=== PATIENT | female | born 1950 | race Caucasian/White ===

== ENCOUNTER 2019-06-24 08:22 | Emergency (ER) | payer MEDICARE, SELFPAY ==
[2019-06-24 08:33] VITALS: BP 148/92; PULSE 75; RESP 16; TEMP 36.4; O2SAT 96
--- NOTE | 2019-06-24 08:48 | ED.WOUNDLAC ---
HPI - Wound/Laceration General Chief Complaint: Wound/Laceration Stated Complaint: puncture wound from fork Time Seen by Provider: 06/24/19 08:41 Source: patient and RN notes reviewed Mode of arrival: ambulatory Limitations: no limitations History of Present Illness HPI narrative: A 68 y/o female present to the ED with a painful puncture laceration to her lt 3rd finger beginning this morning. She states that she was closing her utensil drawer when she slammed her finger in the drawer, causing a laceration to her lt 3rd finger. She notes that she is on Xarelto and that she couldn't get the bleeding to stop right away, so she decided to come to the ED. She also notes that she doesn't think that her tetanus shot is up to date. She denies any fevers, chills, CP, SOB, N/V/D, ABD pain, or dizziness. Onset (ago): hour(s) (this morning) Extremity Location: Left: hand (3rd finger) Place: home Patient tetanus UTD: No Context: accidental Associated symptoms: pain Related Data Home Medications Medication Instructions Recorded Confirmed rivaroxaban [Xarelto] mg 06/24/19 Allergies Allergy/AdvReac Type Severity Reaction Status Date / Time No Known Allergies Allergy Unverified 06/24/19 08:43 Review of Systems Review of Systems: All systems reviewed & are unremarkable except as noted in HPI and below Constitutional: Constitutional: Denies chills and Denies fever(s) Cardiovascular: Cardiovascular: Denies chest pain Respiratory: Respiratory: Denies dyspnea Gastrointestinal: Gastrointestinal: Denies abdominal pain, Denies diarrhea, Denies nausea and Denies vomiting Integumentary/Breasts: Skin/Breast: Reports wounds (painful puncture laceration to her lt 3rd finger) Neurologic: Denies dizziness PMFSH Past Medical History Medical History Adult hypothyroidism Anxiety Arthritis Depression DVT (deep venous thrombosis) GERD (gastroesophageal reflux disease) H/O: HTN (hypertension) Hypercholesteremia Hypothyroid Macular degeneration ERICK (obstructive sleep apnea) Other and unspecified hyperlipidemia PE (pulmonary thromboembolism) Prediabetes Shingles Sleep apnea Vitamin D deficiency Surgical History Surgical History H/O section History of colonoscopy x2. Family History Family History Mother Diabetes mellitus Family history of diabetes mellitus in first degree relative Father Acute myocardial infarction Other Cerebrovascular accident Family history of cardiovascular disease Hypertension Social History Social History Smoking status: Former smoker Second hand tobacco smoke exposure: Yes Alcohol intake: current Gender identity (if verbalized by the patient): Male Exam Narrative: Exam Narrative: GENERAL: Well-appearing, well-nourished, and in no acute distress. HEAD: Normocephalic, atraumatic. EYES: PERRLA and EOMI. ENT: Nares clear, no rhinorrhea or epistaxis. Mucous membranes moist. NECK: Supple. CHEST: Clear to auscultation. No respiratory distress. HEART: Regular rate and rhythm. No murmur heard. Normal peripheral pulses. EXTREMITIES: Normal range of motion. No edema. Has 2 small puncture wounds on the left middle finger with no active bleeding SKIN: Warm, dry, no rash. NEURO: No focal deficits. Alert and oriented x3. PSYCH: Normal mood and affect. Course Course Emergency Course: Advised her to keep the wound clean and with the pressure dressing for 48 hours. Vital Signs Vital signs: Vital Signs Temperature 36.4 C 06/24/19 08:33 Pulse Rate 75 06/24/19 08:33 Respiratory Rate 16 06/24/19 08:33 Blood Pressure 148/92 H 06/24/19 08:33 Pulse Oximetry 96 06/24/19 08:33 Temperature 36.4 C 06/24/19 08:33 Pulse Rate 75 06/24/19 08:33 Respiratory Rate 16 06/24/19 08:33 Blood
[2019-06-24] MEDS: TETANUS,DIPHTHERIA,AC PERTUSSIS ADULT (0.5 ML) BOOSTRIX IM (09:32)
== END 2019-06-24 09:35 | disposition home or self-care (01) ==
PROVIDERS: Emergency Provider Family Medicine; PCP Internal Medicine
DX: S61.233A Puncture wound without foreign body of left middle finger without damage to nail, initial encounter (principal); Z23 Encounter for immunization; E03.9 Hypothyroidism, unspecified; F41.9 Anxiety disorder, unspecified; Z86.718 Personal history of other venous thrombosis and embolism; K21.9 Gastro-esophageal reflux disease without esophagitis; I10 Essential (primary) hypertension; E78.00 Pure hypercholesterolemia, unspecified; H35.30 Unspecified macular degeneration; G47.33 Obstructive sleep apnea (adult) (pediatric); Z86.711 Personal history of pulmonary embolism; R73.03 Prediabetes; G47.30 Sleep apnea, unspecified; E55.9 Vitamin D deficiency, unspecified; Z87.891 Personal history of nicotine dependence; W23.0XXA Caught, crushed, jammed, or pinched between moving objects, initial encounter
CPT/HCPCS: 90471; 90715; 99283

== ENCOUNTER 2019-09-24 08:45 | Outpatient (CLI) | payer MEDICARE, SELFPAY ==
--- NOTE | ~2019-09-24 | US_ITS ---
US right upper quadrant DATE: 09/24/2019 09:25 INDICATION: Gallbladder calculus TECHNIQUE: Real-time imaging of liver, pancreas, gallbladder areas COMPARISON: 01/28/2017 CT abdomen pelvis FINDINGS: The pancreatic tail is obscured by bowel gas. The pancreas is otherwise unremarkable. Hepatic steatosis. No apparent hepatic space-occupying mass lesion. Normal hepatic portal venous flow direction. There is an approximately 8 mm stone at the neck of the gallbladder. No gallbladder wall thickening i s evident. No pericholecystic abnormal fluid collection. Negative sonographic Beckett's sign. The common bile duct measures 4 mm, within normal range. IMPRESSION: Cholelithiasis Hepatic steatosis Reviewed, dictated and finalized at [facility]. Reviewed, dictated and finalized at [facility].
== END 2019-09-24 08:46 | disposition home or self-care (01) ==
PROVIDERS: PCP Internal Medicine; Visit Provider Nurse Practitioner
DX: K80.20 Calculus of gallbladder without cholecystitis without obstruction (principal); K76.0 Fatty (change of) liver, not elsewhere classified
CPT/HCPCS: 76705

== ENCOUNTER 2019-10-14 07:48 | Outpatient (CLI) | payer MEDICARE, SELFPAY ==
--- NOTE | ~2019-10-14 | NM_ITS ---
HEPATOBILIARY SCAN Procedure: Hepatobiliary scan performed following IV administration 4.9 mCi Tc 99m Choletec. At 60 m inutes 2 mcg CCK administered IV for evaluation of gallbladder ejection fraction. Indication:Diarrhea. Gallstones. Comparison: Ultrasound dated 09/24/2019 Findings: There is normal radiotracer uptake in the liver parenchyma with prompt excretion into the b iliary tract. Gallbladder visualized at 20 minutes. Small bowel visualized at 25 minutes. Normal g allbladder ejection fraction measures 61% (normal 10-90%, but most patients with gallbladder dysfunct ion have GBEF of less than 35%) Impression: 1: Normal hepatobiliary scan. Reviewed, dictated and finalized at [facility]. Impression: 1: Normal hepatobiliary scan.
== END 2019-10-14 07:49 | disposition home or self-care (01) ==
PROVIDERS: PCP Internal Medicine; Visit Provider Surgery
DX: R19.7 Diarrhea, unspecified (principal)
CPT/HCPCS: 78227; A9537; J2805

== ENCOUNTER 2019-10-28 06:55 | Outpatient (CLI) | payer MEDICARE, SELFPAY ==
--- NOTE | ~2019-10-28 | CT_ITS ---
EXAMINATION: CT abdomen pelvis w con INDICATION: Left-sided abdominal pain TECHNIQUE: Computed tomographic images of the abdomen and pelvis were obtained after the administrati on of 100 cc of Omnipaque 350 intravenous contrast. The dose-length product (DLP) was 1120.57 mGy-cm. Automated exposure control and iterative reconstruction technique were employed. COMPARISON: 01/28/2017 FINDINGS: Minimal dependent atelectasis is present in the lung bases. The heart size is normal. The l iver is diffusely low in attenuation when compared with the spleen, consistent with hepatic steatosis . The spleen, pancreas, and adrenal glands are normal. A stone is present in the nondistended gallbla dder. The left kidney is unremarkable. There is a 2 mm nonobstructing stone of the right kidney lower pole. No stones are present in the ureters or bladder. There is calcified atherosclerosis of the aor ta and many of the other arteries. No pathologically enlarged abdominal or pelvic lymph nodes are ivory ntified. The appendix is normal. There is a left inguinal hernia containing fat. There is a questiona ble circumscribed fat attenuation mass contiguous with the left inguinal hernia. There is mild lumbar spondylosis. IMPRESSION: 1. Fat-containing left inguinal hernia contiguous with a possible fat attenuation retroperitoneal mas s. Surgical consultation is recommended. 2. Diffuse hepatic steatosis. Reviewed, dictated and finalized at [facility]. IMPRESSION: 1. Fat-containing left inguinal hernia contiguous with a possible fat attenuati on retroperitoneal mass. Surgical consultation is recommended. 2. Diffuse hepatic steatosis.
[2019-10-28 07:34] LABS: Estimated Glomerular Filt Rate > 60
== END 2019-10-28 06:56 | disposition home or self-care (01) ==
PROVIDERS: PCP Internal Medicine
DX: R14.0 Abdominal distension (gaseous) (principal); K76.0 Fatty (change of) liver, not elsewhere classified; K40.90 Unilateral inguinal hernia, without obstruction or gangrene, not specified as recurrent
CPT/HCPCS: 36415; 74177; Q9967

== ENCOUNTER 2019-11-17 01:37 | Outpatient (CLI) | payer MEDICARE, SELFPAY ==
[2019-11-17 19:09] LABS: SARS-CoV-2 RNA PCR Negative
== END 2019-11-17 01:38 | disposition home or self-care (01) ==
LOC: ANHCOVIDDT 01:37
PROVIDERS: PCP Internal Medicine; Visit Provider Internal Medicine Gastroenterology
DX: Z01.818 Encounter for other preprocedural examination (principal); Z11.59 Encounter for screening for other viral diseases
CPT/HCPCS: 87635; C9803; U0003

== ENCOUNTER 2019-11-19 01:22 | Day surgery (SDC) | payer MEDICARE, SELFPAY ==
[2019-11-12 15:19] VITALS: BMI 36.6
--- NOTE | 2019-11-19 08:15 | WPDANESEPPF ---
Anes - Initial Pre Proc Eval Procedure: Operation Date: 11/19/19 09:00 Proposed Procedures p Colonoscopy - Hermes Deluna DO Date/Time: 11/19/19 08:15 Surgeon: Hermes Deluna DO Pre Op Diagnosis: Diarrhea/ LLQ Pain Patient Data Age: 69 Gender: F Height: 5 ft 2 in Weight: 91 kg Allergies Allergy/AdvReac Type Severity Reaction Status Date / Time No Known Allergies Allergy Verified 11/19/19 08:20 Home Medications Medication Instructions Recorded Confirmed Type zolpidem 10 mg tablet 10 mg PO .QHS PRN #30 tablet 07/08/19 11/12/19 Rx famotidine 40 mg tablet 40 mg PO DAILY #90 tablet 09/15/19 11/12/19 Rx levothyroxine 125 mcg tablet 125 mcg PO DAILY #90 tablet 09/15/19 11/12/19 Rx metformin 500 mg tablet 500 mg PO BID #180 tablet 09/15/19 11/12/19 Rx metoprolol succinate 25 mg 25 mg PO DAILY #90 tablet 09/15/19 11/12/19 Rx tablet,extended release 24 hr rivaroxaban 20 mg tablet 20 mg PO DAILY #90 tablet 09/15/19 11/12/19 Rx sertraline 50 mg tablet 50 mg PO DAILY #90 tablet 09/15/19 11/12/19 Rx simvastatin 20 mg tablet 20 mg PO DAILY #90 tablet 09/15/19 11/12/19 Rx Patient hx anesthesia problems: none Family hx anesthesia problems: none PMFSH Past Medical History Medical History Adult hypothyroidism Anxiety Arthritis Depression DVT (deep venous thrombosis) GERD (gastroesophageal reflux disease) H/O: HTN (hypertension) High cholesterol Hypercholesteremia Hypothyroid Macular degeneration Mitral valve prolapse ERICK (obstructive sleep apnea) Other and unspecified hyperlipidemia PE (pulmonary thromboembolism) Prediabetes Shingles Sleep apnea Vitamin D deficiency Surgical History Surgical History H/O section H/O knee surgery History of colonoscopy x2. Family History Family History Mother Diabetes mellitus Family history of diabetes mellitus in first degree relative Father Acute myocardial infarction Heart attack Sibling Heart attack Other Cerebrovascular accident Family history of cardiovascular disease Hypertension Social History Social History Smoking status: Former smoker Second hand tobacco smoke exposure: Yes Alcohol intake: current Substance use: never Gender identity (if verbalized by the patient): Male Anes - Eval Final PreProcedure Day of Procedure 11/19/19 08:15 Patient weight: obese Heart: regular rate and rhythm Lungs: decreased breath sounds Airway: Mallampati scale class II Neurological: alert and oriented Last oral intake: >/= 8 hours ASA classification: III Emergent: no Anesthetic plan: proceed Anesthesia type and monitoring: general GIVS and standard monitoring Informed Consent: The patient's anesthetic plan and its attendant risks and benefits were discussed with the patient/family/POA. Questions were solicited and answers provided to the satisfaction of the patient/family/POA.
[2019-11-19 08:21] VITALS: BP 130/101; PULSE 78; RESP 18; TEMP 36.3; O2SAT 94
[2019-11-19] MEDS: LACTATED RINGERS 1,000 ML 150 ML IV CONT (08:37)
[2019-11-19 08:42] LABS: Glucose Point of Care 112 (65-105)
--- NOTE | 2019-11-19 09:11 | PM.IMHP ---
H&P: HPI History of Present Illness Chief complaint: Diarrhea/ LLQ Pain Narrative: Reason for visit colonoscopy. This very pleasant lady's being evaluated at the request of the primary physician. Impression: Your very pleasant lady with chronic diarrhea. This may be compatible to IBS. Underlying inflammatory neoplastic disease should be excluded. Globus reaction responded to H2 kirti. Diabetes mellitus. Hypertension. Hyperlipidemia. Obstructive sleep apnea. Hypothyroidism. Migraine cephalgia. Factor 5 laden deficiency. DVT/PE. Obesity. Recommendation: Colonoscopy. History: This very pleasant lady's being readied for chronic diarrhea. She reports urgency and diarrhea usually after breakfast. She will have a normal bowel movement followed by 1 or 2 diarrheal stools. She has significant left upper and left lower quadrant abdominal discomfort and cramping. Defecation usually alleviates her symptoms. She does have a history of a globus type reaction. This has responded nicely to H2 blockers. Vomiting, hematemesis, dysphagia, odynophagia, hematochezia, melena and acholic stools or tonight. Patient previously has had a colonoscopy which was unremarkable according to her. Physical examination: General: very pleasant patient in no acute distress. HEENT: Head was normocephalic sclerae is clear mouth without masses neck was supple. Heart: Rate rhythm regular without S3 or S4. Lungs: CTA. Abdomen: Soft with no guarding or rigidity. Bowel sounds were active. Neurologic: Cranial nerves 2 through 12 intact. No focal defects. No clonus. Musculoskeletal system: Revealed no joint tenderness or swelling no muscle atrophy. Extremities: Reveal no significant edema. Skin: Warm and dry with normal turgor. Mental status: intact. Patient is alert and oriented. Review of Systems Review of Systems: All systems reviewed & are unremarkable except as noted in HPI and below COUNTS INCLUDE 234 BEDS AT THE [facility] Past Medical History Medical History Adult hypothyroidism Anxiety Arthritis Depression DVT (deep venous thrombosis) GERD (gastroesophageal reflux disease) H/O: HTN (hypertension) High cholesterol Hypercholesteremia Hypothyroid Macular degeneration Mitral valve prolapse ERICK (obstructive sleep apnea) Other and unspecified hyperlipidemia PE (pulmonary thromboembolism) Prediabetes Shingles Sleep apnea Vitamin D deficiency Surgical History Surgical History H/O section H/O knee surgery History of colonoscopy x2. Family History Family History Mother Diabetes mellitus Family history of diabetes mellitus in first degree relative Father Acute myocardial infarction Heart attack Sibling Heart attack Other Cerebrovascular accident Family history of cardiovascular disease Hypertension Social History Social History Smoking status: Former smoker Second hand tobacco smoke exposure: Yes Alcohol intake: current Substance use: never Gender identity (if verbalized by the patient): Male Meds Home Medications and Allergies Home Medications Medication Instructions Recorded Confirmed Type zolpidem 10 mg tablet 10 mg PO .HS PRN #30 tablet 07/08/19 11/19/19 Rx famotidine 40 mg tablet 40 mg PO DAILY #90 tablet 09/15/19 11/19/19 Rx levothyroxine 125 mcg tablet 125 mcg PO DAILY #90 tablet 09/15/19 11/19/19 Rx metformin 500 mg tablet 500 mg PO BID #180 tablet 09/15/19 11/19/19 Rx metoprolol succinate 25 mg 25 mg PO DAILY #90 tablet 09/15/19 11/19/19 Rx tablet,extended release 24 hr rivaroxaban 20 mg tablet 20 mg PO DAILY #90 tablet 09/15/19 11/19/19 Rx sertraline 50 mg tablet 50 mg PO DAILY #90 tablet 09/15/19 11/19/19 Rx simvastatin 20 mg t
[2019-11-19 09:49] VITALS: BP 106/49; PULSE 69; RESP 20; O2SAT 99
[2019-11-19 09:59] VITALS: BP 110/66; PULSE 61; RESP 18; O2SAT 95
[2019-11-19 10:09] VITALS: BP 124/67; PULSE 58; RESP 12; O2SAT 95
== END 2019-11-19 10:14 | disposition home or self-care (01) ==
PROVIDERS: PCP Internal Medicine; Visit Provider Internal Medicine Gastroenterology
PROC: 0DJD8ZZ Inspection of Lower Intestinal Tract, Via Natural or Artificial Opening Endoscopic (ICD-10-PCS; CPT 45378; principal; 2019-11-19 09:00)
DX: K52.9 Noninfective gastroenteritis and colitis, unspecified (principal); I10 Essential (primary) hypertension; E78.00 Pure hypercholesterolemia, unspecified; R73.03 Prediabetes; E03.9 Hypothyroidism, unspecified; F41.8 Other specified anxiety disorders; K21.9 Gastro-esophageal reflux disease without esophagitis; G47.33 Obstructive sleep apnea (adult) (pediatric); I34.1 Nonrheumatic mitral (valve) prolapse; E55.9 Vitamin D deficiency, unspecified; Z86.711 Personal history of pulmonary embolism; Z86.718 Personal history of other venous thrombosis and embolism; Z79.01 Long term (current) use of anticoagulants; Z79.84 Long term (current) use of oral hypoglycemic drugs; Z87.891 Personal history of nicotine dependence; E66.9 Obesity, unspecified; Z68.35 Body mass index [BMI] 35.0-35.9, adult
CPT/HCPCS: 45380; 88305; J2704; J7120

== ENCOUNTER 2019-12-28 11:34 | Outpatient (CLI) | payer MEDICARE, SELFPAY ==
[2019-12-28 12:01] LABS: Anion Gap 5 mmol/L (8-16); Blood Urea Nitrogen 17 mg/dL (7-17); Calcium 9.1 mg/dL (8.4-10.2); Carbon Dioxide 29 mmol/L (22-30); Chloride 104 mmol/L (98-107); Estimated Glomerular Filt Rate > 60; Glucose 93 mg/dL (65-105); Potassium 4.8 mmol/L (3.4-5.0); Sodium 138 mmol/L (137-145)
== END 2019-12-28 11:35 | disposition home or self-care (01) ==
LOC: ANHSURGERY 11:36
PROVIDERS: Anesthesiology; PCP Internal Medicine; Visit Provider Surgery
DX: Z01.818 Encounter for other preprocedural examination (principal); E11.9 Type 2 diabetes mellitus without complications
CPT/HCPCS: 36415; 80048

== ENCOUNTER 2019-12-29 02:09 | Outpatient (CLI) | payer MEDICARE, SELFPAY ==
[2019-12-29 18:23] LABS: SARS-CoV-2 RNA PCR Negative
== END 2019-12-29 02:10 | disposition home or self-care (01) ==
LOC: ANHCOVIDDT 02:09
PROVIDERS: PCP Internal Medicine; Visit Provider Surgery
DX: Z01.812 Encounter for preprocedural laboratory examination (principal); Z20.828 Contact with and (suspected) exposure to other viral communicable diseases
CPT/HCPCS: 87635; C9803; U0003

== ENCOUNTER 2019-12-31 00:41 | Day surgery (SDC) | payer MEDICARE, SELFPAY ==
[2019-12-21 10:45] VITALS: BMI 36.6
--- NOTE | 2019-12-30 11:25 | WPDANESEPPF ---
Anes - Initial Pre Proc Eval Procedure: Operation Date: 12/31/19 10:30 Proposed Procedures p Repair Left Inguinal Hernia - Pro Galeano MD Date/Time: 12/30/19 11:25 Surgeon: Pro Galeano MD Pre Op Diagnosis: Left Inguinal Hernia Patient Data Age: 69 Gender: F Height: 1.57 m Weight: 91 kg Allergies Allergy/AdvReac Type Severity Reaction Status Date / Time No Known Allergies Allergy Verified 12/31/19 08:46 Home Medications Medication Instructions Recorded Confirmed Type zolpidem 10 mg tablet 10 mg PO .QHS PRN #30 tablet 07/08/19 12/31/19 Rx famotidine 40 mg tablet 40 mg PO DAILY #90 tablet 09/15/19 12/31/19 Rx levothyroxine 125 mcg tablet 125 mcg PO DAILY #90 tablet 09/15/19 12/31/19 Rx metformin 500 mg tablet 500 mg PO BID #180 tablet 09/15/19 12/31/19 Rx rivaroxaban 20 mg tablet 20 mg PO DAILY #90 tablet 09/15/19 12/31/19 Rx sertraline 50 mg tablet 50 mg PO DAILY #90 tablet 09/15/19 12/31/19 Rx simvastatin 20 mg tablet 20 mg PO DAILY #90 tablet 09/15/19 12/31/19 Rx metoprolol succinate 25 mg PO HS 12/21/19 12/31/19 History Patient hx anesthesia problems: none Family hx anesthesia problems: none PMFSH Past Medical History Medical History Adult hypothyroidism Anxiety Arthritis Depression DVT (deep venous thrombosis) GERD (gastroesophageal reflux disease) H/O: HTN (hypertension) High cholesterol Hypercholesteremia Hypothyroid Macular degeneration Mitral valve prolapse ERICK (obstructive sleep apnea) Other and unspecified hyperlipidemia PE (pulmonary thromboembolism) Prediabetes Shingles Sleep apnea Vitamin D deficiency Surgical History Surgical History H/O section H/O knee surgery History of colonoscopy x2. Family History Family History Mother Diabetes mellitus Family history of diabetes mellitus in first degree relative Father Acute myocardial infarction Heart attack Other Cerebrovascular accident Family history of cardiovascular disease Hypertension Social History Social History Smoking status: Former smoker Second hand tobacco smoke exposure: Yes Additional smoking assessment comments: STATES 1/2PK/D - AGE 17-25 Alcohol intake: current Drinks per week: 1 Substance use: never Living arrangements: with family Gender identity (if verbalized by the patient): Female Spiritual care concerns: No Anes - Eval Final PreProcedure Day of Procedure 12/30/19 11:25 Patient weight: obese Heart: regular rate and rhythm Lungs: clear to auscultation and normal air movement Airway: Mallampati scale class II Neurological: alert and oriented Last oral intake: >/= 8 hours ASA classification: III Emergent: no Anesthetic plan: proceed Anesthesia type and monitoring: general GIVS and standard monitoring Informed Consent: The patient's anesthetic plan and its attendant risks and benefits were discussed with the patient/family/POA. Questions were solicited and answers provided to the satisfaction of the patient/family/POA.
--- NOTE | 2019-12-31 06:29 | PM.SD ---
Same Day Admit/Disch: HPI History of Present Illness Chief complaint: Left Inguinal Hernia Narrative: Olivia Ramirez is a 69 year old femaleWith complaints of burning pain in the left groin area. The left groin is also larger than the right. She was seen in the office approximately 30 days ago and found to have a left inguinal hernia that is reducible. She takes anticoagulation for DVT which has been held. She is taken to surgery today for left inguinal hernia repair as an outpatient. [facility] Past Medical History Medical History Adult hypothyroidism Anxiety Arthritis Depression DVT (deep venous thrombosis) GERD (gastroesophageal reflux disease) H/O: HTN (hypertension) High cholesterol Hypercholesteremia Hypothyroid Macular degeneration Mitral valve prolapse ERICK (obstructive sleep apnea) Other and unspecified hyperlipidemia PE (pulmonary thromboembolism) Prediabetes Shingles Sleep apnea Vitamin D deficiency Surgical History Surgical History H/O section H/O knee surgery History of colonoscopy x2. Family History Family History Mother Diabetes mellitus Family history of diabetes mellitus in first degree relative Father Acute myocardial infarction Heart attack Other Cerebrovascular accident Family history of cardiovascular disease Hypertension Social History Social History Smoking status: Former smoker Second hand tobacco smoke exposure: Yes Additional smoking assessment comments: STATES 1/2PK/D - AGE 17-25 Alcohol intake: current Drinks per week: 1 Substance use: never Living arrangements: with family Gender identity (if verbalized by the patient): Female Spiritual care concerns: No Same Day Admit/Disch: Med Pre-admit Medications Home Medications Medication Instructions Recorded Confirmed Type zolpidem 10 mg tablet 10 mg PO .[facility] PRN #30 tablet 07/08/19 12/31/19 Rx famotidine 40 mg tablet 40 mg PO DAILY #90 tablet 09/15/19 12/31/19 Rx levothyroxine 125 mcg tablet 125 mcg PO DAILY #90 tablet 09/15/19 12/31/19 Rx metformin 500 mg tablet 500 mg PO BID #180 tablet 09/15/19 12/31/19 Rx rivaroxaban 20 mg tablet 20 mg PO DAILY #90 tablet 09/15/19 12/31/19 Rx sertraline 50 mg tablet 50 mg PO DAILY #90 tablet 09/15/19 12/31/19 Rx simvastatin 20 mg tablet 20 mg PO DAILY #90 tablet 09/15/19 12/31/19 Rx metoprolol succinate 25 mg PO HS 12/21/19 12/31/19 History oxycodone-acetaminophen 0.5 - 1 tablet PO Q6H PRN #15 12/31/19 Rx tablet Exam Const: General: comfortable, no acute distress, alert and awake HENMT: Head: normocephalic and atraumatic Mouth: Yes Normal oral and palatal mucosa present Eyes: Conjunctivae: conjunctivae normal Pupils: Equal, round and reactive pupils present EOM: EOMs intact bilaterally Neck: Neck: normal visual inspection, no lymphadenopathy and nontender Resp: Effort & Inspection: normal respiratory effort Auscultation: clear to auscultation bilaterally Cardio: Rate: regular rate Rhythm: regular rhythm Heart sounds: no gallops, no murmurs and no rubs GI: Inspection: non-distended and visible herniation ( left groin) GI Palp: Yes Soft to palpation, No Tenderness to palpation present (GI), No Hepatomegaly present, No Splenomegaly present and Yes Hernia present ( reducible left inguinal hernia. No right inguinal hernia noted.) Skin: Lesions: no lesions Rashes: no rashes Neuro: General: no focal motor deficits and CN's II-XI intact bilaterally Cranial nerves: Yes Equal, round and reactive pupils present, Yes Bilaterally intact EOM present, Yes facial symmetry and Yes Midline tongue present Speech: normal speech Motor exam (neuro): 5/5 motor strength present throughout and Motor abnormalities not present Extrem: Genera
[2019-12-31 08:37] VITALS: BP 140/78; PULSE 80; RESP 18; TEMP 36.6; O2SAT 96; BMI 35.2
[2019-12-31] MEDS: LACTATED RINGERS 1,000 ML 30 ML IV CONT (09:01)
[2019-12-31 09:04] LABS: Glucose Point of Care 107 (65-105)
[2019-12-31] MEDS: KETOROLAC 15 MG/ML VIAL (*BKC) IV PUSH (09:04)
[2019-12-31] MEDS: ACETAMINOPHEN 500 MG TABLET 1000 MG PO (09:04)
--- NOTE | 2019-12-31 10:22 | SUR.PREOP ---
DR ENGLISH MARKED PT
[2019-12-31] MEDS: ceFAZolin 2 GM/D5W 50 ML 2 GM/50 ML BAG IVPB (10:32)
[2019-12-31 12:05] VITALS: BP 117/60; PULSE 68; RESP 16; O2SAT 97
--- NOTE | 2019-12-31 12:07 | PM.PROC ---
Procedure Note - Detailed Date of procedure: 12/31/19 Pre-op diagnosis: Left Inguinal Hernia Left inguinal hernia Post-op diagnosis: same Procedure performed: left inguinal hernia repair with 6 cm Parietex hernia mesh system Description of procedure: The patient was taken to surgery and placed in a supine position. The left groin and genitalia were prepped and draped. The proposed incision was marked on the skin. Local anesthesia was infiltrated in the area of the anticipated incision and in the deeper subcutaneous tissues. Incision was made and dissection was carried down to Lola's fascia. We continued on beyond Lola's fascia to the external oblique aponeurosis. Cautery was used for hemostasis. The aponeurosis and external ring were exposed. Additional local was infiltrated deep to the aponeurosis in the area of the inguinal canal contents. The external oblique aponeurosis was then opened laterally and extended medially through the external ring. The ileoinguinal nerve was divided and discarded.There was some fatty tissue associated with the round ligament. This was dissected back to the internal ring and then amputated and discarded. The hernia was indirect so it was located near the internal ring. I removed a segment of round ligament. This was also discarded. I then dissected the hernia sac back to a high dissection leaving the portion of the round ligament with the hernia sac. I then dunked the hernia sac and the round ligament into the retroperitoneum. A 6 cm Parietex ely shoshone was chosen and folded to form a plug. It was placed in the defect. The edges were sutured to the transversalis fascia with interrupted 3 0 Vicryl suture. I then cut the patch to the appropriate size and placed it over the inguinal canal floor. The external oblique aponeurosis was closed with interrupted 3 0 Vicryl suture. Lola's fascia was closed with interrupted 3 0 Vicryl suture. The skin was closed with subcuticular interrupted 4 0 Vicryl sutures. The wound was dressed with Exofin surgical adhesive. The patient was awakened and taken to recovery in good condition. Sponge and needle counts were correct x2. Implants: 6 cm Parietex hernia mesh system Anesthesia: MAC and local (0.5% Marcaine with Exparel) Surgeon: Pro Galeano MD Dredging Inspector: Alessandra CROCKETT Estimated blood loss (mL): 5 Drains: No Packing: No Pathology: none sent Complications: None Condition: stable Disposition: same day Findings: Indirect right inguinal hernia
[2019-12-31 12:17] LABS: Glucose Point of Care 100 (65-105)
[2019-12-31 12:35] VITALS: BP 123/65; PULSE 61; RESP 20
[2019-12-31 13:05] VITALS: BP 112/50; PULSE 60; RESP 20
[2019-12-31 13:30] VITALS: BP 120/60; PULSE 60; RESP 20
[2019-12-31 14:00] VITALS: BP 120/78; PULSE 70; RESP 16
== END 2019-12-31 14:14 | disposition home or self-care (01) ==
PROVIDERS: PCP Internal Medicine; Visit Provider Surgery
PROC: (CPT 49505; principal; 2019-12-31 10:30)
DX: K40.90 Unilateral inguinal hernia, without obstruction or gangrene, not specified as recurrent (principal); E03.9 Hypothyroidism, unspecified; F41.8 Other specified anxiety disorders; M19.90 Unspecified osteoarthritis, unspecified site; K21.9 Gastro-esophageal reflux disease without esophagitis; Z86.718 Personal history of other venous thrombosis and embolism; Z79.01 Long term (current) use of anticoagulants; E78.00 Pure hypercholesterolemia, unspecified; H35.30 Unspecified macular degeneration; G47.33 Obstructive sleep apnea (adult) (pediatric); Z86.711 Personal history of pulmonary embolism; R73.03 Prediabetes; E55.9 Vitamin D deficiency, unspecified
CPT/HCPCS: 49505; 36415; 80048; 87635; A9270; C1781; C9290; C9803; J0690; J1885; J2250; J2704; J3010; J7120; U0003

== ENCOUNTER 2020-05-26 08:59 | Outpatient (CLI) | payer MEDICARE, SELFPAY ==
--- NOTE | 2020-05-26 09:32 | EST_ITS ---
Patient Info Name: Olivia Ramirez Age: 69 years : 1950 Gender: Female Ht: 62 in Wt: 197 lbs BSA: 2.02 m2 HR: 69 bpm BP: 154 / 82 mmHg Exam Date: 05/26/2020 10:13 AM Exam Location: [facility] Patient Status: Outpatient Admit Date: 05/26/2020 Staff Ordering Physician: Claude Noland DO Attending Provider: Claude Noland DO Referring Physician: Nuzhat AGUIRRE; Exam Type: CA stress echo Study Info Indications R60.9 - Edema, unspecified Treadmill exercise stress echocardiogram is performed. Summary 1. 1. Negative Nikita exercise stress test for ischemic ST changes by ECG criteria. 2. 2. Good functional capacity, achieving 7 METs of workload. 3. 3. Appropriate HR response to exercise. 4. 4. Appropriate HR recovery at 1 minute post exercise. 5. 5. Negative stress echocardiogram for ischemia by wall motion analysis. 6. 6. Patient informed of the above results. Stress Echo Findings Left Ventricle Appropriate increase in LV endocardial thickening with systole. Appropriate augmentation of contractility with systole. No wall motion abnormality. Left Ventricle Normal LV systolic function, no wall motion abnormality. Protocol: Nikita Stress ECG Details Stage: REST Duration (min): 5 min : 36 sec Speed (mph): 0.0 Grade (%): 0 HR (bpm): 69 SBP (mmHg): 154 DBP (mmHg): 82 METS: --- Stage: REST Duration (min): 12 min : 7 sec Speed (mph): 0.0 Grade (%): 0 HR (bpm): 73 SBP (mmHg): 154 DBP (mmHg): 82 METS: --- Stage: STAGE 1 Duration (min): 1 min : 0 sec Speed (mph): 1.7 Grade (%): 10 HR (bpm): 95 SBP (mmHg): 154 DBP (mmHg): 82 METS: --- Stage: STAGE 1 Duration (min): 2 min : 0 sec Speed (mph): 1.7 Grade (%): 10 HR (bpm): 66 SBP (mmHg): 154 DBP (mmHg): 82 METS: --- Stage: STAGE 1 Duration (min): 3 min : 0 sec Speed (mph): 1.7 Grade (%): 10 HR (bpm): 112 SBP (mmHg): 184 DBP (mmHg): 104 METS: --- Stage: STAGE 2 Duration (min): 1 min : 0 sec Speed (mph): 2.5 Grade (%): 12 HR (bpm): 120 SBP (mmHg): 184 DBP (mmHg): 104 METS: --- Stage: STAGE 2 Duration (min): 2 min : 0 sec Speed (mph): 2.5 Grade (%): 12 HR (bpm): 130 SBP (mmHg): 184 DBP (mmHg): 104 METS: --- Stage: STAGE 2 Duration (min): 2 min : 25 sec Speed (mph): 0.0 Grade (%): 0 HR (bpm): 135 SBP (mmHg): 184 DBP (mmHg): 104 METS: --- Stage: RECOVERY Duration (min): 0 min : 34 sec Speed (mph): 0.0 Grade (%): 0 HR (bpm): 126 SBP (mmHg): 184 DBP (mmHg): 104 METS: --- Stage: RECOVERY Duration (min): 1 min : 34 sec Speed (mph): 0.0 Grade (%): 0 HR (bpm): 111 SBP (mmHg): 204 DBP (mmHg): 44 METS: --- Stage: RECOVERY Duration (min): 2 min : 34 sec Speed (mph): 0.0 Grade (%): 0 HR (bpm): 91 SBP (mmHg): 204 DBP (mmHg): 44 METS: ---
== END 2020-05-26 09:00 | disposition home or self-care (01) ==
PROVIDERS: Family Provider Internal Medicine; PCP Internal Medicine; Visit Provider Internal Medicine
DX: R94.31 Abnormal electrocardiogram [ECG] [EKG] (principal); R60.9 Edema, unspecified; Z82.49 Family history of ischemic heart disease and other diseases of the circulatory system
CPT/HCPCS: 93351

== ENCOUNTER → 2020-06-18 01:10 | Outpatient (CLI) | payer MEDICARE, SELFPAY ==
[2020-06-18 19:48] LABS: SARS-CoV-2 RNA PCR Negative
== END ==
PROVIDERS: Family Provider Internal Medicine; PCP Internal Medicine; Visit Provider Internal Medicine Critical Care Medicine
DX: Z01.812 Encounter for preprocedural laboratory examination (principal); Z20.822 Contact with and (suspected) exposure to COVID-19
CPT/HCPCS: C9803; U0003; U0005

== ENCOUNTER 2020-06-21 09:15 | Outpatient (CLI) | payer MEDICARE, SELFPAY ==
--- NOTE | 2020-07-08 11:45 | WPDSLEEPSTUD ---
Sleep Study Date of Study: 06/21/20 Ordering Provider: MARA Dias Interpreting Physician: Olga Horne MD Sleep Study Type: Split Polysomnogram Height: 1.57 m Weight: 88.904 kg Body Mass Index: 35.8 Jarales: 7 Reason for Sleep Study History of sleep apnea on CPAP, increased symptoms Sleep History Olivia Ramirez is a 69 year old female with a history of sleep apnea who use CPAP for about 4 years, quit 2 years ago due to difficulty finding a comfortable mask. When she was using CPAP, she frequently woke in the morning with red eyes. Since being off CPAP, she misses being on it and wants to restart therapy. She says that she was able to use CPAP in the first part of the night, however about 3 or 4 in the morning she had problems which led to her taking the mask off. She tried several different masks, and this was her main reason for quitting. She wakes up often during the night. Her tells her that she snores loudly. She wakes herself up snoring. She is tired throughout the day and requires naps. She never awakens at night with heartburn, belching or coughing although she takes antacids often. She occasionally awakens from sleep feeling short of breath. She occasionally has trouble sleep with a cold. She rarely wakes up gasping for breath at night. She does not have breathing problems at night observed by others. She occasionally sweats excessively night. She does not notice her heart pounding or beating irregularly at night. She frequently falls asleep during the day, never involuntarily or while driving. She does not have loss of muscle tone with strong emotion. She does not have daytime difficulties due to excessive sleepiness. She does not feel paralyzed on waking or falling asleep. She occasionally has vivid dreamlike scenes upon awakening or falling asleep. She is never afraid to go to sleep. She occasionally has nightmares, frequently remembers her dreams. She frequently has racing thoughts. She does not have feelings of sadness or depression. She occasionally has anxiety. She occasionally has muscular tension. She does not notice parts of her body jerking and she does not kick at night. She occasionally has crawling and aching feelings in her legs. She does not have leg pain during the night. She does not wake up with morning jaw pain. She frequently grinds her teeth during sleep. She occasionally has bothered by pain during the day. She is not awakened by pain at night. She rarely wakes up feeling stiff in the morning with sore achy muscles or pain in the neck and spine. She takes antacids regularly. Normal bedtime 9:30 p.m. taking 30 minutes to fall asleep typically awaken 3 times at night. The first 2 awakenings are short, however the the 3rd awakening typically is longer and she may get up after that episode. She awakens to go urinate, get a drinking go back to sleep. She wakes the morning at 5:00 a.m.. The weekend schedule is the same. She sometimes wakes up when her wakes. She still has occasional hot flashes. She takes naps in the afternoon. She feels refreshed after a longer nap not a short nap. She is drowsy in the morning for 3 hours or longer. Habits: Quit tobacco 45 years ago. Caffeine 2 coffees in the morning. One alcoholic beverage a week. No recreational drugs. [facility] Past Medical History Medical History Adult hypothyroidism Anxiety Arthritis Depression DVT (deep venous thrombosis) GERD (gastroesophageal reflux disease) H/O: HTN (hypertension) Hand swelling High cholesterol Hypercholesteremia Hypothyroid Macular degeneration Mitral valve prolapse ERICK (obstructive sleep apnea) Other and unspecified hyperlipidemia PE (pulmonary thromboembolism) Prediabetes Shingles Skin lesions Sleep apnea Vitamin D deficiency Surgical History Surgical History H/
[2020-07-08 11:47] VITALS: BMI 35.8
== END 2020-06-21 09:16 | disposition home or self-care (01) ==
PROVIDERS: Family Provider Internal Medicine; PCP Internal Medicine; Visit Provider Nurse Practitioner
DX: G47.33 Obstructive sleep apnea (adult) (pediatric) (principal)
CPT/HCPCS: 95811

== ENCOUNTER 2020-11-03 08:31 | Outpatient (CLI) | payer MEDICARE, SELFPAY ==
--- NOTE | ~2020-11-03 | MM_ITS ---
EXAMINATION: MM screening [facility] BI w herminia HISTORY: Screening TECHNIQUE: Craniocaudal and mediolateral oblique 3-D tomosynthesis images were obtained and synthetic 2-D images were generated. CAD analysis was submitted and interpreted. COMPARISON: Comparison to multiple prior studies sequentially, with oldest reviewed study dated 12/23. BREAST PARENCHYMAL COMPOSITION: There are scattered areas of fibroglandular density. FINDINGS: There are stable benign-appearing masses in the right breast. There is no evidence of suspi cious mass, calcification, or architectural distortion to suggest malignancy in either breast. There has been no suspicious interval change. IMPRESSION: 1. No mammographic evidence of malignancy. 2. Recommend routine screening mammography in one year. BI-RADS Category 2: Benign finding(s). Reviewed, dictated and finalized at location A.
== END 2020-11-03 08:32 | disposition home or self-care (01) ==
LOC: ANHIMG 08:33
PROVIDERS: PCP Internal Medicine; Visit Provider Internal Medicine
DX: Z12.31 Encounter for screening mammogram for malignant neoplasm of breast (principal)
CPT/HCPCS: 77063; 77067

== ENCOUNTER 2021-02-02 08:07 | Outpatient (CLI) | payer MEDICARE, SELFPAY ==
--- NOTE | ~2021-02-02 | CT_ITS ---
EXAMINATION: CT brain wo con DATE: 02/02/2021 08:28 INDICATION: Double vision TECHNIQUE: Computed tomography (CT) of the head was performed without intravenous contrast. The mA wa s adjusted according to patient size. Iterative reconstruction technique was employed. Exam dose: 60 5.33 mGy-cm total exam DLP. COMPARISON: June 25, 2016 CT brain FINDINGS: No intracranial mass lesion or hemorrhage or cerebrovascular accident, midline shift or mas s effect is detected. No sellar or suprasellar mass lesion is detected. Normal ventricular size. No subdural or epidural hematoma is detected. Bilateral carotid siphon internal carotid artery calcifications and mild vertebral artery calcificati ons. No fracture or bone destruction of the cranial vault. The mastoid air cells and included paranasal si nuses are normally aerated. IMPRESSION: Cerebral atherosclerosis; no acute intracranial finding Reviewed, dictated and finalized at Location A. Reviewed, dictated and finalized at location B.
== END 2021-02-02 08:08 | disposition home or self-care (01) ==
LOC: ANHIMG 08:12
PROVIDERS: PCP Internal Medicine; Visit Provider Internal Medicine
DX: H53.9 Unspecified visual disturbance (principal); I67.2 Cerebral atherosclerosis
CPT/HCPCS: 70450

== ENCOUNTER → 2021-02-13 04:07 | Outpatient (CLI) | payer MEDICARE, SELFPAY ==
[2021-02-13 20:20] LABS: SARS-CoV-2 RNA PCR Negative
== END ==
PROVIDERS: PCP Internal Medicine; Visit Provider Internal Medicine
DX: R68.89 Other general symptoms and signs (principal); Z20.822 Contact with and (suspected) exposure to COVID-19
CPT/HCPCS: C9803; U0003; U0005

== ENCOUNTER → 2021-03-14 08:38 | Outpatient (CLI) | payer MEDICARE, SELFPAY ==
[2021-03-14 16:54] LABS: SARS-CoV-2 RNA PCR Negative
== END ==
PROVIDERS: PCP Internal Medicine; Visit Provider Internal Medicine
DX: R09.89 Other specified symptoms and signs involving the circulatory and respiratory systems (principal); Z20.822 Contact with and (suspected) exposure to COVID-19
CPT/HCPCS: C9803; U0003; U0005

== ENCOUNTER → 2021-06-01 01:19 | Outpatient (CLI) | payer MEDICARE, SELFPAY ==
[2021-06-01 14:31] LABS: Influenza A QL RT-PCR Negative (Negative); Influenza B QL RT-PCR Negative (Negative); SARS-CoV-2 RNA PCR Negative
== END ==
PROVIDERS: PCP Internal Medicine; Visit Provider Nurse Practitioner
DX: R68.89 Other general symptoms and signs (principal); Z20.822 Contact with and (suspected) exposure to COVID-19
CPT/HCPCS: 87502; C9803; U0003; U0005

== ENCOUNTER 2021-08-02 12:40 | Outpatient (CLI) | payer MEDICARE, SELFPAY ==
--- NOTE | ~2021-08-02 | DEXA_ITS ---
Bone Density Report Name: ALBERT CUEVA Age: 70 Sex: Female Ethnicity: White Date of : 1950 Indication: osteopenia; parental hip fracture; height loss; postmenopausal Referring Provider: Sandi Saini Study: Bone densitometry was performed. Exam Date: August 02, 2021 Accession number: [id number] Bone Density: Region BMD T-score Z-score Classification AP Spine (L1-L4) 0.868 -1.6 0.5 Osteopenia Femoral Neck (Left) 0.509 -3.1 -1.2 Osteoporosis Total Hip (Left) 0.831 -0.9 0.6 Normal Total Hip Bilateral Avg 0.856 -0.7 0.8 Normal Femoral Neck (Right) 0.588 -2.3 -0.5 Osteopenia Total Hip (Right) 0.881 -0.5 1.0 Normal World Health Organization criteria for BMD impression classify patients as: Normal (T-score at or above -1.0), Osteopenia (T-score between -1.0 and -2.5), or Osteoporosis (T-score at or below -2.5). 10-year Fracture Risk: FRAX not reported because: Some T-score for Spine Total or Hip Total or Femoral Neck at or below -2.5 Previous Exams: Region Exam Age BMD T-score BMD Change BMD Change Date g/cm2 vs Baseline vs Previous AP Spine(L1-L4) 08/02/2021 70 0.868 -1.6 0.010(1.2%) -0.001(-0.1%) 10/16/2018 68 0.869 -1.6 0.011(1.3%) 0.011(1.3%) 12/23/2014 64 0.858 -1.7 Total Hip(Left) 08/02/2021 70 0.831 -0.9 -0.039(-4.5%)* -0.029(-3.3%)* 10/16/2018 68 0.859 -0.7 -0.010(-1.2%) -0.010(-1.2%) 12/23/2014 64 0.870 -0.6 Total Hip(Right) 08/02/2021 70 0.881 -0.5 -0.040(-4.3%)* -0.040(-4.3%)* 12/23/2014 64 0.921 -0.2 *Denotes significance at 95% confidence level, LSC for AP Spine = 0.022 g/cm2, LSC for Total Hip = 0.027 g/cm2 Clinical Information Provided by Patient: Parent has had a hip fracture Patient maximum height was 62 Menopause Age: 50 No regular weight bearing exercise Drinks caffeinated beverages Onset of menses at age 13 Number of children 2 Impression: The patient has osteoporosis, based on the Left Femoral Neck T-score. The patient has risk factors, including: parental hip fracture. The BMD for the Total Hip(Left) decreased, changing by -3.3% since the last DXA exam. The BMD for the Total Hip(Right) decreased, changing by -4.3% since the last DXA exam. Discussion: INCREASED RISK OF FRACTURE. BONE DENSITY IS UNDESIRABLY LOW AT ONE OR MORE SKELETAL SITES, CONSISTENT WITH POSTMENOPAUSAL OSTEOPOROSIS. This patient's lowest T-score meets the World Health Organization's (WHO) criteria for osteopor
== END 2021-08-02 12:41 | disposition home or self-care (01) ==
PROVIDERS: PCP Internal Medicine; Visit Provider Nurse Practitioner
DX: Z78.0 Asymptomatic menopausal state (principal); M85.88 Other specified disorders of bone density and structure, other site; M81.0 Age-related osteoporosis without current pathological fracture; M85.851 Other specified disorders of bone density and structure, right thigh
CPT/HCPCS: 77080

== ENCOUNTER 2023-06-26 15:53 | Outpatient (CLI) | payer MEDICARE, SELFPAY ==
[2023-06-26 17:12] LABS: Influenza A QL RT-PCR Positive (Negative); Influenza B QL RT-PCR Negative (Negative); RSV RNA, RT-PCR Negative (Negative); SARS-CoV-2 RNA PCR Negative (Negative)
== END 2023-06-26 15:54 | disposition home or self-care (01) ==
LOC: ANHLAB 15:54
PROVIDERS: PCP Nurse Practitioner Family; Visit Provider Nurse Practitioner Family
DX: J06.9 Acute upper respiratory infection, unspecified (principal); Z20.822 Contact with and (suspected) exposure to COVID-19
CPT/HCPCS: 87637

== ENCOUNTER 2023-07-08 14:23 | Outpatient (CLI) | payer MEDICARE, SELFPAY ==
--- NOTE | ~2023-07-08 | XR_ITS ---
EXAMINATION: XR chest 2V Exam Date/Time: 07/08/2023 14:35 REPORT CLERK HISTORY: M54.9 - Dorsalgia, unspecified Comparison: CTPA 04/11/2015. RESULT: Lines, tubes, and devices: None. Lungs and pleura: Clear. Cardiomediastinal silhouette: Unremarkable . Other: No acute osseous or upper abdominal finding. IMPRESSION: No acute cardiopulmonary process. Reviewed, dictated and finalized at location K. RT CLERK
== END 2023-07-08 14:24 | disposition home or self-care (01) ==
LOC: ANHIMG 14:28
PROVIDERS: PCP Nurse Practitioner Family; Visit Provider Family Medicine
DX: M54.9 Dorsalgia, unspecified (principal); Z87.891 Personal history of nicotine dependence
CPT/HCPCS: 71046

== ENCOUNTER 2023-11-08 13:44 | Outpatient (CLI) | payer MEDICARE, SELFPAY ==
--- NOTE | ~2023-11-08 | MR_ITS ---
EXAMINATION: MR hip LT wo con DATE: 11/08/2023 15:02 INDICATION: Left hip and thigh pain TECHNIQUE: Magnetic resonance imaging (MRI) of the left hip was performed without intravenous contra st. Sequences included full-field axial PD-weighted FS FSE and T1-weighted FSE, coronal of the pelvis with PD-weighted FS FSE, T2-weighted FSE and T1-weighted FSE, small field of view of the left hip w ith axial PD-weighted FS FSE, sagittal PD-weighted FS FSE, coronal PD-weighted FS FSE and coronal T2 weighted FSE. Additional radial T1-weighted FGR oriented orthogonal to the acetabular rim were obtai holger for evaluation of the labrum. COMPARISON: None FINDINGS: Bones/labrum/cartilage: Alignment is normal. No fracture, avascular necrosis or pathologic marrow replacing process. Moderat e lumbosacral spondylosis. Mild to moderate osteoarthritis at the left hip with posterior predominant partial-thickness cartilage loss with subarticular cystlike change at the posterior inferior left ac etabulum and at the posterolateral margin of the femoral head. Left acetabular labrum appears normal. Although not diagnostically evaluated on the larger [id number] images appears be similar at least mild osteoarthritis at the right hip with subarticular cystlike changes at the superolateral aspect of the right acetabulum and right femoral head. Fluid: Symmetric physiologic amount of fluid within both hip joints. Soft tissues: Normal and symmetric muscle bulk and signal in the pelvis and visualized proximal thighs. The iliopso as, gluteal and proximal hamstring tendons are normal. Postoperative change of prior left inguinal he rnia repair. 2.0 cm signal intensity fibroid at the left side of the anteverted uterus. Limited evalu ation of visceral organs of the pelvis is otherwise unremarkable. Normal appendix. No pathologically enlarged pelvic/inguinal lymphadenopathy. IMPRESSION: 1. Mild to moderate left hip osteoarthritis and at least mild osteoarthritis at the. 2. Moderate lumbosacral spondylosis. Contralateral right hip which is not diagnostically evaluated. 3. 2 cm uterine fibroid. Reviewed, dictated and finalized at location B. IMPRESSION: 1. Mild to moderate left hip osteoarthritis and at least mild osteoarthritis at the. 2. Moderate lumbosacral spondylosis. Contralateral right hip which is not diagn ostically evaluated. 3. 2 cm uterine fibroid.
== END 2023-11-08 13:45 | disposition home or self-care (01) ==
PROVIDERS: PCP Family Medicine; Visit Provider Orthopaedic Surgery
DX: D25.9 Leiomyoma of uterus, unspecified (principal); M47.896 Other spondylosis, lumbar region; M16.12 Unilateral primary osteoarthritis, left hip
CPT/HCPCS: 73721

== ENCOUNTER 2024-07-29 09:16 | Outpatient (CLI) | payer MEDICARE, SELFPAY ==
--- NOTE | ~2024-07-29 | MM_ITS ---
EXAMINATION: MM screening nohemi BI w herminia HISTORY: Screening TECHNIQUE: Craniocaudal and mediolateral oblique 3-D tomosynthesis images were obtained and synthetic 2-D images were generated. CAD analysis was submitted and interpreted. COMPARISON: 11/03/2020 and dating back to 12/23/2014 BREAST PARENCHYMAL COMPOSITION: There are scattered areas of fibroglandular density. FINDINGS: Interval development of indeterminate microcalcifications within the upper outer quadrant o f the left breast for which magnification views are needed. Otherwise stable parenchymal pattern without architectural distortion, discrete masses or significant asymmetry. IMPRESSION: Interval development of indeterminate microcalcifications within the upper outer quadrant of the left breast for which magnification views are needed. BI-RADS Category 0: Incomplete: Needs additional imaging evaluation. Reviewed, dictated and finalized at location A. IMPRESSION: Interval development of indeterminate microcalcifications within the upper oute r quadrant of the left breast for which magnification views are needed. BI-RADS Category 0: Incomplete: Needs additional imaging evaluation.
--- OUTSIDE RECORDS SUMMARY | 2024-07-29 09:57 | XMS_ITS | Clinical Summary ---
Author Organization [facility] Address [address] [place] [address] Phone Care Team Providers Care Avionics Safety Inspector Name Role Phone Claude Noland DO Primary Care Provider [phone] Allergies No known active allergies Medications levothyroxine (SYNTHROID) 125 MCG Tablet Take by mouth. Active metFORMIN (GLUCOPHAGE) 500 MG Tablet Take by mouth. Active metoprolol Succinate (TOPROL-XL) 25 MG TABLET SR 24 HR Take by mouth. Active sertraline (ZOLOFT) 50 MG Tablet 1 04/14/2015 Active simvastatin (ZOCOR) 20 MG Tablet 1 04/14/2015 Active XARELTO 20 MG Tablet 2 04/13/2015 Active ergocalciferol (VITAMIN D) 74208 UNIT Capsule 0 03/28/2015 Active famotidine (PEPCID) 40 MG Tablet TK 1 T PO D 08/25/2019 Active Active Problems Problem Noted Date Diagnosed Date Osteoarthrosis 10/23/2019 Keratosis, senilis 02/29/2016 Lentigo 02/29/2016 Rosacea 02/29/2016 Factor V Leiden mutation 04/21/2015 Acute pulmonary embolism 04/21/2015 Left leg DVT 04/21/2015 Family History Medical History Relation Name Comments Heart Attack Father High Cholesterol Father Diabetes Mother Hypertension Mother Parkinsonism Mother Stroke Mother Relation Name Status Comments Father Mother Social History Tobacco Use Types Packs/Day Years Used Date Smoking Tobacco: Former Cigarettes Q uit: 05/06/1974 Smokeless Tobacco: Never Tobacco Cessation:Counseling Given: No Alcohol Use Standard Drinks/Week Comments Not Currently 0 (1 standard drink = 0.6 oz pur e alcohol) Comments No Sex and Gender Information Value Date Recorded Sex Assigned at Not on file 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 Gender Identity Not on file Sexual Orientation Not on file Last Filed Vital Signs Vital Sign Reading Time Taken Comments Blood Pressure 100/70 10/23/2019 2:29 PM CDT Pulse 69 10/23/2019 2:29 PM CDT Temperature 37.1 C (98.7 F) 10/23/2019 2:29 PM CDT Respiratory Rate 16 10/23/2019 2:29 PM CDT Oxygen Saturation 98% 10/23/2019 2:29 PM CDT Inhaled Oxygen Concentration - - Weight 90.3 kg (199 lb) 10/23/2019 2:29 PM CDT Height 157.5 cm (5' 2 ) 10/23/2019 2:29 PM CDT Body Mass Index 36.4 10/23/2019 2:29 PM CDT Plan of Treatment Health Maintenance Due Date Last Done Comments Hepatitis C Virus (HCV) Screening 1950 Cologuard 2000 Immunochemical Fecal Occult Blood 2000 Pneumococcal Immunization (50+ years) (2 of 2 - PPSV23) 11/07/2018 11/07/2017, 06/13/2017 Zoster Immunization (2 of 2) 12/19/2018 10/24/2018, 01/13/2018 Influenza Immunization (#1) 01/05/202403/06, 01/13/2018, 06/13/2017, Additional history exists SARS-COV-2 Immunization ( season) 2024 03/04/2021, 07/10/2020, 06/18/2020 Respiratory Syncytial Virus (RSV) Immunization (Adult) (1 - 1-dose 75+ series) 2025 Colonoscopy 11/18/2026 11/19/2019 Colorectal Cancer Screening 11/18/2026 11/19/2019 Pneumococcal Immunization Combined Discontinued 11/07/2017, 06/13/2017 DTaP/Tdap/Td Immunization Discontinued 06/24/2019 TdaP Immunization Completed 06/24/2019 Hepatitis B Immunization Aged Out No longer eligible based on patient's age to complete this topic Meningococcal Immunization (ACWY) Aged Out No longer eligible based on patient's age to complete this topic Rotavirus Immunization Aged Out No lo nger eligible based on patient's age to complete this topic Procedures Procedure Name Priority Date/Time Associated Diagnosis Comments COLONOSCOPY Routine 11/19/2019 from Last 3 Months or Most Recently Relevant to Health Maintenance Results * COLONOSCOPY (11/19/2019) Hermes Kaushik Mikie DO PROCEDURE/MINOR SURGICAL ORDERA BLES Final Result from Last 3 Months or Most Recently Relevant to Health Maintenance [facility] [place] [address] MEDICARE C [facility] on file Care Teams Avionics Safety Inspector Relationship Specialty Start Date End Date Claude Noland DO [address] [place] [address] PCP - General Internal Medicine 10/20/19
--- OUTSIDE RECORDS SUMMARY | 2024-07-29 09:57 | XMS_ITS | Clinical Summary ---
Author Organization [facility] Address [address] [place] [address] Care Team Providers Care Oil Refinery Process Technician Name Role Phone Teo Mcghee MD Primary Care Provider [phone] Allergies No known active allergies Active Problems Problem Noted Date Diagnosed Date Rosacea 02/29/2016 Lentigo 02/29/2016 Keratosis, senilis 02/29/2016 Sebaceous gland hyperplasia 02/29/2016 Social History Tobacco Use Types Packs/Day Years Used Date Smoking Tobacco: Never Assessed Personal Safety Answer Date Recorded Have you ever been in or are you currently in a harmful physical or emotional relationship or is someone making you feel afraid or unsafe? 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 Gender Identity Not on file Sexual Orientation Not on file Obstetrics History Last Filed Vital Signs Vital Sign Reading Time Taken Comments Blood Pressure 135/82 03/14/2024 4:17 PM INSTALLATION SUPERINTENDENT Pulse 66 03/14/2024 4:17 PM INSTALLATION SUPERINTENDENT Temperature 36.4 C (97.6 F) 03/14/2024 2:40 PM INSTALLATION SUPERINTENDENT Respiratory Rate 18 03/14/2024 2:40 PM INSTALLATION SUPERINTENDENT Oxygen Saturation 95% 03/14/2024 4:17 PM INSTALLATION SUPERINTENDENT Inhaled Oxygen Concentration - - Weight 75.8 kg (167 lb) 03/14/2024 2:40 PM INSTALLATION SUPERINTENDENT Height - - Body Mass Index - - Plan of Treatment Health Maintenance Due Date Last Done Comments Colon Cancer Screening-Colonoscopy 1950 Depression Screening 1950 Fall Risk Assessment 1950 Hepatitis C Screening 1950 Osteoporosis Screening-Bone Density Scan 1950 Hepatitis B Screening 1968 Breast Cancer Screening-Mammogram 01/20/2015 014, 01/20/2013 Well Visit 65+ 10/12/2015 Zoster Vaccine (2 of 2) 12/19/2018 10/24/2018, 01/13 Covid-19 Vaccine (6 - 2023-2 5 season) 2024 02/20/2022, 11/27/2021, 03/04/2021, Additional history exists Influenza Vaccine (#1) 2024 3, 02/20/2022, 03/04/2021, Additional history exists DTaP/Tdap/Td Vaccine (2 - Td or Tdap) 06/24/2029 06/24/2019 Pneumococcal vaccine 65+ Completed 023, 11/07/2017, 06/13/[address] [place] [address] [facility] MEDICARE [facility] MED[facility] Address: [facility] [address] [place] [address] [place] [address] [facility] MEDICARE [facility] Address[facility] [address] [place] [address] Care Teams Oil Refinery Process Technician Relationship Specialty Start Date End Date Teo Mcghee MD [address] [facility] [address] [facility] [address] [place] [address] PCP - General 04/22/15
--- OUTSIDE RECORDS SUMMARY | 2024-07-29 09:57 | XMS_ITS | Clinical Summary ---
Author Organization [facility] Address [address] [facility] [place] [address] Care Team Providers Care Vault Worker Name Role Phone Teo Mcghee MD Primary Care Provider [phone] Maurice Lyons MD Unavailable [phone] Gigi Calderón MD Unavailable Source Comments [facility],non-owned Affiliates and Associated Physician Practices is amultiple site organization consisting of ambulatory clinics and hospital sitesin [place], [place], [place] and [place]. This disclosure is being madepursuant to the Care Everywhere program and may not contain all information available regarding this patient. Last updated 18.[facility] Allergies No known active allergies Medications * Be aware that medications may not be up to date on this document. Alwaysverify current medications with the patient. Medication Sig Dispensed Refills Start Date End Date Status levothyroxine (SYNTHROID) 125 MCG tablet Take 125 mcg by mouth daily before breakfast. Active metoprolol succinate XL 24hr (TOPROL XL) 25 MG tablet Take 25 mg by mouth once daily. Active sertraline (ZOLOFT) 25 MG tablet Take 50 mg by mouth once daily Active metFORMIN (GLUCOPHAGE) 500 MG tablet Take 500 mg by mouth 2 times daily with morning and evening meal. Active simvastatin (ZOCOR) 10 MG tablet Take 20 mg by mouth at bedtime Active XARELTO 20 MG tablet Take 20 mg by mouth once daily 07/18/2017 Active calcium 600 MG tablet Take 1 tablet by mouth daily with food Active terconazole (TERAZOL 3) 80 MG vaginal suppository Insert 1 suppository into the vagina at bedtime 3 suppository 04/18/2020 Active triamcinolone acetonide (KENALOG) 0.1 % ointmentIndicatio ns:Lichen sclerosus of female genitalia APPLY TO THE TO THE AFFECTED AREA NEEDED 80 g 06/09/2021 Active Active Problems Problem Noted Date Diagnosed Date Knee pain 05/16/2020 Chondromalacia 05/16/2020 Osteoarthrosis 05/16/2020 Lichen sclerosus of female genitalia 09/18/2017 Keratosis, senilis 02/29/2016 Lentigo 02/29/2016 Acute pulmonary embolism 04/21/2015 Factor V Leiden mutation 04/21/2015 Left leg DVT 04/21/2015 Other ganglion and cyst of synovium, tendon, and bursa 09/09/2012 Overview (02/04/2016): IMO Updt 02/04/2016 Knee mass 08/04/2012 Family History Medical History Relation Name Comments CAD (Coronary Artery Disease) Brother CAD (Coronary Artery Disease) Father [place] in 40's Breast Cancer after age 50 or unknown Mother Breast Cancer after age 50 or unknown Paternal Aunt Relation Name Status Comments Brother Father Mother Paternal Aunt Social History Tobacco Use Types Packs/Day Years Used Date Smoking Tobacco: Former Cigarettes Q uit: 06/1999 Smokeless Tobacco: Never Alcohol Use Standard Drinks/Week Comments Yes 1.7 (1 standard drink = 0.6 oz p ure alcohol) once a week Sex and Gender Information Value Date Recorded Sex Assigned at Not on file Gender Identity Not on file Sexual Orientation Not on file Last Filed Vital Signs Vital Sign Reading Time Taken Comments Blood Pressure 122/84 05/16/2020 11:25 AM MANAGER FINANCIAL Pulse 59 01/08/2013 11:27 AM CDT Temperature - - Respiratory Rate 16 01/08/2013 10:24 AM CDT Oxygen Saturation 96% 01/08/2013 11:27 AM CDT Inhaled Oxygen Concentration - - Weight 88.9 kg (196 lb) 05/16/2020 11:25 AM MANAGER FINANCIAL Height 157.5 cm (5' 2 ) 12/03/2018 9:09 AM CDT Body Mass Index 35.85 12/03/2018 9:09 AM CDT Plan of Treatment Health Maintenance Due Date Last Done Comments BONE DENSITY TESTING 1950 COLOGUARD (AGES 45-75) - COL ON CA SCREENING 1950 CT COLONOGRAPHY - COLON CA SCREENING 1950 FIT - COLON CA SCREENING 1950 FLEX SIG - COLON CA SCREENING 1950 HEPATITIS C SCREENING 10/06/1968 DTAP/TDAP/TD VACCINES (1 - Tdap) 1969 PNEUMOCOCCAL VACCINE 50+ (1 of 1 - PCV) 2000 ZOSTER VACCINE (1 of 2) 2000 MAMMOGRAM 05/24/2019 05/24/2017, 01/20/2014, 01/20/2013 COLON MONITORING 01/08/2023 01/08/2013 COLONOSCOPY - COLON CA SCREENING 01/08/2023 01/08/2013 Colorectal Cancer Screening 01/08/2023 COVID-19 VACCINE (1 - 2023-2 5 season) 2024 INFLUENZA VACCINE (#1) 2024 DEPRESSION SCREENING 05/06/2024 MEDICARE AWV CALENDAR YEAR 2024 Respiratory Syncytial Virus (RSV) Vaccine Pt: or over 60 yrs (1 - 1-dose 75+ series) 2025 HEPATITIS B VACCINE Aged Out No longe r eligible based on patient's age to complete this topic HIB VACCINE Aged Out No longer eligi ble based on patient's age to complete this topic HPV VACCINE Aged Out No longer eligi ble based on patient's age to complete this topic MENINGOCOCCAL (Group B) VACCINE SHARED DECISION-MAKING Aged Out No longer eligible based on patient's age to complete this topic MENINGOCOCCAL GROUPS A/C/Y/W VACCINE Aged Out No longer eligible b ased on patient's age to complete this topic Procedures Procedure Name Priority Date/Time Associated Diagnosis Comments MAMMOGRAM Routine 05/24/2017 from Last 3 Months or Most Recently Relevant to Health Maintenance Results * MAMMOGRAM (05/24/2017) Anatomical Region Laterality Modality Other Historical Provider MD SCANNING ONLY from Last 3 Months or Most Recently Relevant to Health Maintenance Care Teams Vault Worker Relationship Specialty Start Date End Date Teo Mcghee MD [address] [place] [address] PCP - General 05/13/10 Maurice Lyons MD [address] [place] [address] Orthopedic Surgery 08/04/12 Gigi Calderón MD [address] [facility] [address] [place] [address] Obstetrics and Gynecology 09/23/13
--- OUTSIDE RECORDS SUMMARY | 2024-07-29 09:57 | XMS_ITS | Clinical Summary ---
Author Organization [facility] Address [address] [place] [address] Care Team Providers Care Budget Consultant Name Role Phone Unavailable Primary Care Provider Unavailabl e Social History Tobacco Use Types Packs/Day Years Used Date Smoking Tobacco: Never Assessed Comments Unknown Sex and Gender Information Value Date Recorded Sex Assigned at Not on file Legal Sex Female 7:05 PM CDT Gender Identity Not on file Sexual Orientation Not on file Plan of Treatment Health Maintenance Due Date Last Done Comments Colorectal Cancer Screening Colonoscopy (10 Years) 1950 Hepatitis C 1968 DTaP, Tdap and Td Vaccines ( 1 - Tdap) 1969 Mammogram Screening 1990 Zoster Vaccines (1 of 2) 2000 Dexa Scan (General) 10/12/2015 Pneumococcal Vaccine: 65+ Ye ars (1 of 1 - PCV) 10/12/2015 COVID-19 Vaccine (2023-2 5 season) 2024 Influenza Adult (#1) 2024 RSV Immunization or 60+ Years (1 - 1-dose 75+ series) 2025 Meningococcal B Vaccine Aged Out No l onger eligible based on patient's age to complete this topic Meningococcal Vaccine Aged Out No ting adi eligible based on patient's age to complete this topic RSV Immunizations Under 20 Months Aged Out No longer eligible based on patient's age to complete this topic
--- OUTSIDE RECORDS SUMMARY | 2024-07-29 09:57 | XMS_ITS | Referral Summary ---
Author Organization [facility] Address [address] [place] [address] Care Team Providers Care Sap Director Name Role Phone Teo Mcghee MD Primary Care Provider Allergies No known active allergies Active Problems [...] on file Legal Sex Female 3:55 AM LINING MAKER HAND Gender Identity Not on file Sexual Orientation Not on file Last Filed Vital Signs Vital Sign Reading Time Taken Comments Blood Pressure 135/82 03/14/2024 4:17 PM LINING MAKER HAND Pulse 66 03/14/2024 4:17 PM LINING MAKER HAND Temperature 36.4 C (97.6 F) 03/14/2024 2:40 PM LINING MAKER HAND Respiratory Rate 18 03/14/2024 2:40 PM LINING MAKER HAND Oxygen Saturation 95% 03/14/2024 4:17 PM LINING MAKER HAND Inhaled Oxygen Concentration - - Weight 75.8 kg (167 lb) 03/14/2024 2:40 PM LINING MAKER HAND Height - - Body Mass Index - - Plan of Treatment Not [place] [address] [facility] MEDICARE ADVANT[facility] [place] [address] [facility] [place] [address] Care Teams Sap Director Relationship Specialty Start Date End Date Teo Mcghee MD [address] [facility] [address] [place] [address] PCP - General 04/22/15
== END 2024-07-29 09:17 | disposition home or self-care (01) ==
LOC: ANHIMG 09:18
PROVIDERS: PCP Nurse Practitioner Family; Visit Provider Nurse Practitioner Family
DX: Z12.31 Encounter for screening mammogram for malignant neoplasm of breast (principal); R92.8 Other abnormal and inconclusive findings on diagnostic imaging of breast
CPT/HCPCS: 77063; 77067

== ENCOUNTER 2024-08-11 11:31 | Outpatient (CLI) | payer MEDICARE, SELFPAY ==
--- NOTE | ~2024-08-11 | MMUS_ITS ---
EXAMINATION: MM diagnostic nohemi LT w herminia, US breast LT limited HISTORY: Follow-up left breast calcifications TECHNIQUE: Additional 3-D tomosynthesis images of the left breast were performed and synthetic 2-D im ages were generated. CAD analysis was submitted and interpreted. High resolution Limited left breast ultrasound was performed. COMPARISON: Comparison to multiple prior studies sequentially, with oldest reviewed study dated 12/31. BREAST PARENCHYMAL COMPOSITION: Not dense: There are scattered areas of fibroglandular density. FINDINGS: MAMMOGRAPHIC FINDINGS: There are 4 calcifications in the upper outer quadrant of the left breast, middle third. There is an adjacent mass which has waxed and waned dating back to 12/31/2014, likely benign. ULTRASOUND: Limited left breast ultrasound: At 3:00, 4 cm from the nipple there are 2 adjacent cysts, largest neela suring 5 mm. No suspicious masses to suggest malignancy. IMPRESSION: 1. Probable benign left breast calcifications upper outer quadrant, middle third. 2. Recommend 6 month follow-up diagnostic left mammogram BI-RADS category 3, probably benign findings. Reviewed, dictated and finalized at location A. IMPRESSION: 1. Probable benign left breast calcifications upper outer quadrant, middle thir d. 2. Recommend 6 month follow-up diagnostic left mammogram BI-RADS category 3, probably benign findings.
--- OUTSIDE RECORDS SUMMARY | 2024-08-11 13:06 | XMS_ITS | Clinical Summary ---
Author Organization [facility] Address [address] [place] [address] Care Team Providers Care Dress Cap Maker Name Role Phone Unavailable Primary Care Provider [...] of 1 - PCV) 10/12/2015 COVID-19 Vaccine ( - 2023-2 5 season) 2024 RSV Immunization or 60+ Years (1 [...]
--- OUTSIDE RECORDS SUMMARY | 2024-08-11 13:06 | XMS_ITS | Clinical Summary ---
Author Organization [facility] Address [address] [facility] [place] [address] Care Team Providers Care Bridge Contractor Name Role Phone Teo Mcghee MD Primary Care Provider [phone] Maurice Lyons MD Unavailable Gigi Calderón MD Unavailable Source Comments [facility],non-owned Affiliates and Associated Physician Practices is amultiple site organization consisting of ambulatory clinics and hospital sitesin [place], [place], [place] and [place]. This disclosure is being madepursuant to the Care Everywhere program and may not contain all information available regarding this patient. Last updated 18.[facility] Allergies No known active allergies Medications * [...] Disease) Brother CAD (Coronary Artery Disease) Father [place] in 40's Breast Cancer after age 50 [...] Comments Blood Pressure 122/84 05/16/2020 11:25 AM HEAD ESTHETICIAN Pulse 59 01/08/2013 11:27 AM CDT Temperature - - Respiratory Rate 16 01/08/2013 10:24 AM CDT Oxygen Saturation 96% 01/08/2013 11:27 AM CDT Inhaled Oxygen Concentration - - Weight 88.9 kg (196 lb) 05/16/2020 11:25 AM HEAD ESTHETICIAN Height 157.5 cm (5' 2 ) 12/03/2018 [...] VACCINE (1 - 2023-2 5 season) 2024 DEPRESSION SCREENING 05/06/2024 MEDICARE AWV CALENDAR YEAR 2024 INFLUENZA VACCINE (Season Ended) 2025 Respiratory Syncytial Virus (RSV) Vaccine Pt: or [...] Recently Relevant to Health Maintenance Care Teams Bridge Contractor Relationship Specialty Start Date End Date Teo Mcghee MD [address] [place] [address] PCP - General 05/13/10 Maurice Lyons MD [address] [place] [address] Orthopedic Surgery 08/04/12 Gigi Calderón MD [address] [facility] [address] [place] [address] Obstetrics and Gynecology 09/23/13
--- OUTSIDE RECORDS SUMMARY | 2024-08-11 13:06 | XMS_ITS | Referral Summary ---
Author Organization [facility] Address [address] [place] [address] Care Team Providers Care Braid Pattern Setter Name Role Phone Teo Mcghee MD Primary Care Provider [phone] Allergies No known active allergies Active Problems [...] on file Legal Sex Female 3:55 AM WASH DRILLER HELPER Gender Identity Not on file Sexual Orientation Not on file Last Filed Vital Signs Vital Sign Reading Time Taken Comments Blood Pressure 135/82 03/14/2024 4:17 PM WASH DRILLER HELPER Pulse 66 03/14/2024 4:17 PM WASH DRILLER HELPER Temperature 36.4 C (97.6 F) 03/14/2024 2:40 PM WASH DRILLER HELPER Respiratory Rate 18 03/14/2024 2:40 PM WASH DRILLER HELPER Oxygen Saturation 95% 03/14/2024 4:17 PM WASH DRILLER HELPER Inhaled Oxygen Concentration - - Weight 75.8 kg (167 lb) 03/14/2024 2:40 PM WASH DRILLER HELPER Height - - Body Mass Index - - Plan of Treatment Not [place] [address] [facility] MEDICARE ADVANTAGE [facility] [place] [address] [facility] [place] [address] Care Teams Braid Pattern Setter Relationship Specialty Start Date End Date Teo Mcghee MD [address] [facility] [address] [place] [address] PCP - General 04/22/15
--- OUTSIDE RECORDS SUMMARY | 2024-08-11 13:06 | XMS_ITS | Clinical Summary ---
Author Organization [facility] Address [address] [place] [address] Phone Care Team Providers Care Supervisor Sulfuric Acid Plant Name Role Phone Claude Noland DO Primary Care Provider [phone] Allergies No known active allergies Medications levothyroxine (SYNTHROID) 125 MCG Tablet Take by mouth. Active metFORMIN (GLUCOPHAGE) 500 MG Tablet Take by mouth. Active metoprolol Succinate (TOPROL-XL) 25 MG TABLET SR 24 HR Take by mouth. Active sertraline (ZOLOFT) 50 MG Tablet 1 04/14/2015 Active simvastatin (ZOCOR) 20 MG Tablet 1 04/14/2015 Active XARELTO 20 MG Tablet 2 04/13/2015 Active ergocalciferol (VITAMIN D) 13081 UNIT Capsule 0 03/28/2015 Active famotidine (PEPCID) [...] on file Legal Sex Female 10:55 AM LOOM INSPECTOR Gender Identity Not on file Sexual Orientation [...] Most Recently Relevant to Health Maintenance Insurance [facility] [place] [address] MEDICARE C [facility] on file Care Teams Supervisor Sulfuric Acid Plant Relationship Specialty Start Date End Date Claude Noland DO [address] [place] [address] PCP - General Internal Medicine 10/20/19
--- OUTSIDE RECORDS SUMMARY | 2024-08-11 13:06 | XMS_ITS | Clinical Summary ---
Author Organization [facility] Address [address] [place] [address] Care Team Providers Care Parole Agent Name Role Phone Teo Mcghee MD Primary Care Provider [phone] Allergies No known active allergies Active Problems [...] on file Legal Sex Female 3:55 AM TUBING ASSEMBLER Gender Identity Not on file Sexual Orientation Not on file Obstetrics History Last Filed Vital Signs Vital Sign Reading Time Taken Comments Blood Pressure 135/82 03/14/2024 4:17 PM TUBING ASSEMBLER Pulse 66 03/14/2024 4:17 PM TUBING ASSEMBLER Temperature 36.4 C (97.6 F) 03/14/2024 2:40 PM TUBING ASSEMBLER Respiratory Rate 18 03/14/2024 2:40 PM TUBING ASSEMBLER Oxygen Saturation 95% 03/14/2024 4:17 PM TUBING ASSEMBLER Inhaled Oxygen Concentration - - Weight 75.8 kg (167 lb) 03/14/2024 2:40 PM TUBING ASSEMBLER Height - - Body Mass Index - [...] 65+ Completed 023, 11/07/2017, 06/13/[address] [place] [address] [facility] [place] [address] [facility]ICARE ADVANTAGE Care Teams Parole Agent Relationship Specialty Start Date End Date Teo Mcghee MD [address] [facility] [address] [facility] [address] [place] [address] PCP - General 04/22/15
== END 2024-08-11 11:32 | disposition home or self-care (01) ==
LOC: ANHIMG 11:34
PROVIDERS: PCP Nurse Practitioner Family; Visit Provider Nurse Practitioner Family
DX: R92.8 Other abnormal and inconclusive findings on diagnostic imaging of breast (principal)
CPT/HCPCS: 76642; 77061; 77065; G0279

== ENCOUNTER 2024-08-26 09:26 | Outpatient (CLI) | payer MEDICARE, SELFPAY ==
--- NOTE | ~2024-08-26 | DEXA_ITS ---
Bone Density Report Name: ALBERT CUEVA Age: 73 Sex: Female Ethnicity: White Date of : 1950 Indication: osteopenia; Referring Provider: ALEJANDRA MASSEY Study: Bone densitometry was performed. Exam Date: August 26, 2024 Accession number: [id number] Bone Density: Region BMD T-score Z-score Classification AP Spine(L1-L4) 0.841 -1.9 0.5 Osteopenia Femoral Neck (Left) 0.548 -2.7 -0.7 Osteoporosis Total Hip (Left) 0.770 -1.4 0.3 Osteopenia Femoral Neck (Right) 0.550 -2.7 -0.7 Osteoporosis Total Hip (Right) 0.804 -1.1 0.6 Osteopenia Total Hip Mean 0.787 -1.3 0.5 Osteopenia World Health Organization criteria for BMD impression classify patients as: Normal (T-score at or above -1.0), Osteopenia (T-score between -1.0 and -2.5), or Osteoporosis (T-score at or below -2.5). 10-year Fracture Risk: FRAX not reported because: Some T-score for Spine Total or Hip Total or Femoral Neck at or below -2.5 Previous Exams: Region Exam Age BMD T-score BMD Change BMD Change Date g/cm2 vs Baseline vs Previous AP Spine (L1-L4) 08/26/2024 73 0.841 -1.9 -0.017 (-2.0%) -0.027 (-3.2%) 08/02/2021 70 0.868 -1.6 0.010 (1.2%) -0.001 (-0.1%) 10/16/2018 68 0.869 -1.6 0.011 (1.3%) 0.011 (1.3%) 12/23/2014 64 0.858 -1.7 Total Hip(Left) 08/26/2024 73 0.770 -1.4 -0.100 (-11.5% -0.061 (-7.3%) 08/02/2021 70 0.831 -0.9 -0.039 (-4.5%) -0.029 (-3.3%) 10/16/2018 68 0.859 -0.7 -0.010 (-1.2%) -0.010 (-1.2%) 12/23/2014 64 0.870 -0.6 Total Hip(Right) 08/26/2024 73 0.804 -1.1 -0.117 (-12.7% -0.077 (-8.8%) 08/02/2021 70 0.881 -0.5 -0.040 (-4.3%) -0.040 (-4.3%) 12/23/2014 64 0.921 -0.2 *Denotes significance at 95% confidence level, LSC for AP Spine = 0.022 g/cm2, LSC for Total Hip = 0.027 g/cm2 Clinical Information Provided by Patient: Has used the following medications: Vitamin D, Calcium Patient maximum height was 62 Menopause Age: 50 No regular weight bearing exercise Drinks caffeinated beverages Onset of menses at age 14 Number of children 2 Impression: The patient has osteoporosis, based on the Left Femoral Neck T-score. The BMD for the AP Spine (L1-L4) decreased, changing by -3.2% since the last DXA exam. The BMD for the Total Hip(Left) decreased, changing by -7.3% since the last DXA exam. The BMD for the Total Hip(Right) decreased, changing by -8.8% since the last DXA exam. Discussion: INCREASED RISK OF FRACTURE. BONE DENSITY IS UNDESIRABLY LOW AT ONE OR MORE SKELETAL SITES, CONSISTENT WITH POSTMENOPAUSAL OSTEOPOROSIS. This patient's lowest T-score meets the World Health Organization's (WHO) criteria for osteoporosis at one or more sites (T-score -2.5 or below). In untreated patients, the risk of osteoporotic fracture increases approximately two-fold for each 1.0 SD decrease in T-score. Low bone density is not the only risk factor for fracture; also consider factors such as patient's age, frailty or poor health, risk of falling, risk of injury, previous osteoporotic fracture, family history of osteoporosis, cigarette smoking, low body weight, etc. Not everyone with low bone mineral density has osteoporosis; osteomalacia and other metabolic bone disorders should also be considered. Patients who have osteoporosis should be evaluated for specific diseases and conditions (secondary causes) that may cause or contribute to bone loss. The [place] [employer] Clinical Endocrinologists (AACE) and National Osteoporosis Foundation (NOF) recommend pharmacologic intervention for all postmenopausal women whose T-score is in this range. The patient should follow a healthful lifestyle (good nutrition with adequate calcium and vitamin D, and appropriate weight-bearing exercise). Follow-Up: Consider a repeat BMD and Vertebral Fracture Assessment (VFA) exam in 2 years or sooner if medically necessary, to reassess this patient's status. Reported by: CASSANDRA on 08/26/2024 9:58:00 AM. Reviewed, dictated and finalized at location Charles FELIX
--- OUTSIDE RECORDS SUMMARY | 2024-08-26 10:21 | XMS_ITS | Clinical Summary ---
Author Organization [facility] Address [address] [place] [address] Care Team Providers Care Medical Educator Name Role Phone Teo Mcghee MD Primary Care Provider [phone] Allergies No known active allergies Active Problems [...] on file Legal Sex Female 3:55 AM PRESCHOOL TEACHER'S ASSISTANT Gender Identity Not on file Sexual Orientation Not on file Obstetrics History Last Filed Vital Signs Vital Sign Reading Time Taken Comments Blood Pressure 135/82 03/14/2024 4:17 PM PRESCHOOL TEACHER'S ASSISTANT Pulse 66 03/14/2024 4:17 PM PRESCHOOL TEACHER'S ASSISTANT Temperature 36.4 C (97.6 F) 03/14/2024 2:40 PM PRESCHOOL TEACHER'S ASSISTANT Respiratory Rate 18 03/14/2024 2:40 PM PRESCHOOL TEACHER'S ASSISTANT Oxygen Saturation 95% 03/14/2024 4:17 PM PRESCHOOL TEACHER'S ASSISTANT Inhaled Oxygen Concentration - - Weight 75.8 kg (167 lb) 03/14/2024 2:40 PM PRESCHOOL TEACHER'S ASSISTANT Height - - Body Mass Index - [...] 65+ Completed 023, 11/07/2017, 06/13/[address] [place] [address] [facility] [place] [address] [facility] MEDICARE ADVANTAGE Care Teams Medical Educator Relationship Specialty Start Date End Date Teo Mcghee MD [address] [facility] [address] [facility] [address] [place] [address] PCP - General 04/22/15
--- OUTSIDE RECORDS SUMMARY | 2024-08-26 10:21 | XMS_ITS | Clinical Summary ---
Author Organization [facility] Address [address] [place] [address] Care Team Providers Care Information Security Director Name Role Phone Unavailable Primary Care Provider [...] 1 - Tdap) 1969 Mammogram Screening 1990 Pneumococcal Vaccine: 50+ Ye ars (1 of 1 - PCV) 2000 Zoster Vaccines (1 of 2) 2000 Dexa Scan (General) 10/12/2015 COVID-19 Vaccine (2023-2 5 season) 2024 RSV Immunization or 60+ [...]
--- OUTSIDE RECORDS SUMMARY | 2024-08-26 10:21 | XMS_ITS | Clinical Summary ---
Author Organization [facility] Address [address] [place] [address] Care Team Providers Care Ticket Sales Supervisor Name Role Phone Teo Mcghee MD Primary Care Provider [phone] Maurice Lyons MD Unavailable [phone] Gigi Calderón MD Unavailable Source Comments [facility],non-owned Affiliates and Associated Physician Practices is amultiple site organization consisting of ambulatory clinics and hospital sitesin [place], [place], [place] and [place]. This disclosure is being madepursuant to the Care Everywhere program and may not contain all information available regarding this patient. Last updated 18.[facility] Allergies No known active allergies Medications * Be aware that medications may not be up to date on this document. Alwaysverify current medications with the patient. levothyroxine (SYNTHROID) 125 MCG tablet Take 125 [...] Take 20 mg by mouth once daily 07/19/19 Active calcium 600 MG tablet Take 1 tablet by mouth daily with food Active terconazole (TERAZOL 3) 80 MG vaginal suppository Insert 1 suppository into the vagina at bedtime 3 suppository 04/18/20 20 Active triamcinolone acetonide (KENALOG) 0.1 % ointmentIndicat ions:Lichen sclerosus of female genitalia APPLY TO THE TO THE AFFECTED AREA NEEDED 80 g 06/09/19 22 Active Active Problems Problem Noted Date Diagnosed [...] Disease) Brother CAD (Coronary Artery Disease) Father [place] in 40's Breast Cancer after age 50 [...] oz p ure alcohol) once a week Comments No Sex and Gender Information Value Date Recorded Sex Assigned at Not on file Legal Sex Female 6:35 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 Gender Identity Not on file Sexual Orientation Not on file Last Filed Vital Signs Vital Sign Reading Time Taken Comments Blood Pressure 122/84 05/16/2020 11:25 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 Pulse 59 01/08/2013 11:27 AM CDT Temperature - - Respiratory Rate 16 01/08/2013 10:24 AM CDT Oxygen Saturation 96% 01/08/2013 11:27 AM CDT Inhaled Oxygen Concentration - - Weight 88.9 kg (196 lb) 05/16/2020 11:25 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 Height 157.5 cm (5' 2 ) 12/03/2018 [...] 05/24/2019 05/24/2017, 01/20/2014, 01/20/2013 COLON MONITORING 01/08/2023 01/08/2013, 01/08/2013 COLONOSCOPY - COLON CA SCREENING 01/08/2023 01/08/2013, 01/08/2013 Colorectal Cancer Screening 01/08/2023 COVID-19 VACCINE (1 - 2023-2 5 season) 2024 DEPRESSION SCREENING 05/06/2024 INFLUENZA VACCINE (Season Ended) 2025 Respiratory Syncytial [...] Date/Time Associated Diagnosis Comments MAMMOGRAM Routine 05/24/2017 ENDOSCOPY, COLON, DIAGNOSTIC Routine 01/08/2013 10:32 AM CDT from Last 3 Months or Most Recently Relevant to Health Maintenance Results * MAMMOGRAM (05/24/2017) Anatomical Region Laterality Modality Other us Historical Provider MD SCANNING ONLY Final Res ult * ENDOSCOPY, COLON, DIAGNOSTIC (01/08/2013 10:32 AM CDT) Report Endoscopy POC _ Patient Name: Albert Ramirez Procedure Date: 01/08/2013 10:32 AM Date of : 1950 Admit Type: Outpatient Gender: Female Age: 62 Attending MD: Chico Sun MD _ Procedure: Colonoscopy Indications: Screening for colorectal malignant neoplasm Providers: Chico Sun MD (Doctor), Vee Narvaez RN, Ainsley Restrepo RN Referring MD: Teo Mcghee MD (Referring MD) Medicines: Monitored Anesthesia Care Complications: No immediate complications. _ Procedure: Pre-Anesthesia Assessment: - Prior to the procedure, a History and Physical was performed, and patient medications and allergies were reviewed. The patient is competent. The risks and benefits of the procedure and the sedation options and risks were discussed with the patient. All questions were answered and informed consent was obtained. Patient identification and proposed procedure were verified by the physician, the nurse, the special agent in charge and the oil field technician in the pre-procedure area in the endoscopy suite. Mental Status Examination: alert and oriented. Airway Examination: normal oropharyngeal airway and neck mobility. Respiratory Examination: clear to auscultation. CV Examination: normal. Prophylactic Antibiotics: The patient does not require prophylactic antibiotics. Prior Anticoagulants: The patient has taken aspirin, last dose was 5 days prior to procedure. ASA Grade Assessment: II - A patient with mild systemic disease. After reviewing the risks and benefits, the patient was deemed in satisfactory condition to undergo the procedure. The anesthesia plan was to use general anesthesia. Immediately prior to administration of medications, the patient was re-assessed for adequacy to receive sedatives. The heart rate, respiratory rate, oxygen saturations, blood pressure, adequacy of pulmonary ventilation, and response to care were monitored throughout the procedure. The physical status of the patient was re-assessed after the procedure. After I obtained informed consent, the scope was passed under direct vision. Throughout the procedure, the patient's blood pressure, pulse, and oxygen saturations were monitored continuously. The Colonoscope was introduced through the anus and advanced to the terminal ileum, with identification of the appendiceal orifice and IC valve. The colonoscopy was performed without difficulty. The patient tolerated the procedure well. The quality of the bowel preparation was good. Impression: - Diverticulosis from sigmoid to descending colon. - The examination was otherwise normal on direct and retroflexion views. Findings: The perianal and digital rectal examinations were normal. A few diverticula were found from sigmoid to descending colon. The exam was otherwise without abnormality on direct and retroflexion views. _ Recommendation: - Repeat colonoscopy in 10 years for surveillance. - High fiber diet. Procedure Code(s): --- Professional --- G0121, Colorectal cancer screening; colonoscopy on individual not meeting criteria for high risk Diagnosis Code(s): --- Professional --- V76.51, Special screening for malignant neoplasms of colon 562.10, Diverticulosis of colon (without mention of hemorrhage) CPT (R) 2012 [employer]. All Rights Reserved. The codes documented in this report are preliminary and upon onion tier review may be revised to meet current compliance requirements. _ Chico Sun MD 01/08/2013 10:58 AM This report has been signed electronically. Number of Addenda: 0 Note Initiated On: 01/08/2013 10:32 AM [facility] ENDOSCOPY 01/08/2013 10:3 2 AM CDT Narrative [facility] ENDOSCOPY - 01/08/2013 10:59 AM CDT Procedure Note Chico Sun MD - 01/08/2013 10:59 AM CDT us Chico Sun MD GI PROCEDURE ORDERABLES Edited [facility] ENDOSCOPY from Last 3 Months or Most Recently Relevant to [place] [address] [facility] MANAGED MEDICARE ADV [facility] Care Teams Ticket Sales Supervisor Relationship Specialty Start Date End Date Teo Mcghee MD [address] [place] [address] PCP - General 05/13/10 Maurice Lyons MD [address] [place] [id number] Orthopedic Surgery 08/04/12 Gigi Calderón MD [address] [facility] [address] [place] [address] Obstetrics and Gynecology 09/23/13
--- OUTSIDE RECORDS SUMMARY | 2024-08-26 10:21 | XMS_ITS | Referral Summary ---
Author Organization 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 Gender Identity Not on file Sexual Orientation Not on file Last Filed Vital Signs Vital Sign Reading Time Taken Comments Blood Pressure 135/82 03/14/2024 4:17 PM TREE FALLER Pulse 66 03/14/2024 4:17 PM TREE FALLER Temperature 36.4 C (97.6 F) 03/14/2024 2:40 PM TREE FALLER Respiratory Rate 18 03/14/2024 2:40 PM TREE FALLER Oxygen Saturation 95% 03/14/2024 4:17 PM TREE FALLER Inhaled Oxygen Concentration - - Weight 75.8 kg (167 lb) 03/14/2024 2:40 PM TREE FALLER Height - - Body Mass Index - - Plan of Treatment Not [place] [address] [facility] MEDICARE ADVANT[facility] [place] [address] [facility] [place] [address] Care Teams Lap Runner Relationship Specialty Start Date End Date Teo Mcghee MD [address] [facility] [address] [place] [address] PCP - General 04/22/15
--- OUTSIDE RECORDS SUMMARY | 2024-08-26 10:21 | XMS_ITS | Clinical Summary ---
Author Organization [facility] Address [address] [place] [address] Phone Care Team Providers Care Concreting Supervisor Name Role Phone Claude Noland DO Primary Care Provider [phone] Allergies No known active allergies Medications levothyroxine (SYNTHROID) 125 MCG Tablet Take by mouth. Active metFORMIN (GLUCOPHAGE) 500 MG Tablet Take by mouth. Active metoprolol Succinate (TOPROL-XL) 25 MG TABLET SR 24 HR Take by mouth. Active sertraline (ZOLOFT) 50 MG Tablet 1 04/14/2015 Active simvastatin (ZOCOR) 20 MG Tablet 1 04/14/2015 Active XARELTO 20 MG Tablet 2 04/13/2015 Active ergocalciferol (VITAMIN D) 85822 UNIT Capsule 0 03/28/2015 Active famotidine (PEPCID) [...] on file Legal Sex Female 10:55 AM VEGETABLE TIER Gender Identity Not on file Sexual Orientation [...] Most Recently Relevant to Health Maintenance Insurance [facility] [place] [address] MEDICARE C [facility] on file Care Teams Concreting Supervisor Relationship Specialty Start Date End Date Claude Noland DO [address] [place] [address] PCP - General Internal Medicine 10/20/19
== END 2024-08-26 09:27 | disposition home or self-care (01) ==
LOC: ANHIMG 09:26
PROVIDERS: PCP Nurse Practitioner Family; Visit Provider Nurse Practitioner Family
DX: M81.0 Age-related osteoporosis without current pathological fracture (principal); M85.89 Other specified disorders of bone density and structure, multiple sites; Z78.0 Asymptomatic menopausal state; Z13.820 Encounter for screening for osteoporosis; Z12.31 Encounter for screening mammogram for malignant neoplasm of breast
CPT/HCPCS: 77080

== ENCOUNTER 2025-02-10 10:22 | Outpatient (CLI) | payer MEDICARE, SELFPAY ==
--- NOTE | ~2025-02-10 | MM_ITS ---
EXAMINATION: MM diagnostic nohemi LT w herminia INDICATION: 73-year old female; BI-RADS 3, short-term follow-up probably benign left breast calcifications. COMPARISON: 08/11/2024 through 11/03/2020 TECHNIQUE: Digital breast tomosynthesis True lateral, CC and MLO views with magnification views of the LEFT breast were obtained with computer-aided detection to assist in interpretation of the study. MAMMOGRAM FINDINGS: There are scattered areas of fibroglandular density. The previously reported probably benign calcifications in the upper outer quadrant middle third have reidentified as punctate calcifications and are unchanged. No new suspicious mass, calcification or architectural distortion to suggest malignancy in the left breast. IMPRESSION: Probable Benign LEFT breast calcifications are unchanged. No mammographic evidence of malignancy within the left breast. RECOMMENDATION: 6 month follow-up diagnostic BILATERAL mammogram. BI-RADS 3, PROBABLY BENIGN Reviewed, dictated and finalized at location B.
== END 2025-02-10 10:23 | disposition home or self-care (01) ==
LOC: ANHFOHIMG 10:25
PROVIDERS: PCP Nurse Practitioner Family; Visit Provider Nurse Practitioner Family
DX: R92.8 Other abnormal and inconclusive findings on diagnostic imaging of breast (principal)
CPT/HCPCS: 77061; 77065; G0279